=== PATIENT | male | born 1960 | race Caucasian/White ===

== ENCOUNTER 2019-10-23 06:58 | Outpatient (CLI) | payer BC, SELFPAY ==
--- NOTE | ~2019-10-23 | XR_ITS ---
EXAMINATION: XR ankle LT min 3V DATE: 10/23/2019 07:14 INDICATION: Left foot and ankle pain. TECHNIQUE: Anteroposterior, oblique, mortise, and lateral views of the left ankle were obtained. COMPARISON: 09/04/2003 FINDINGS: Alignment is normal. Old healed fractures at the lateral malleolus and lateral aspect of the talar do me with mild residual deformities. No acute fracture. Mild nonuniform joint space narrowing consisten t with secondary osteoarthritis at the tibiotalar joint. New ovoid heterotopic ossicle near the tip o f the medial malleolus likely related to prior deltoid ligament sprain. Moderate-sized plantar calcan eal spur. Soft tissues are unremarkable with no left ankle joint effusion. IMPRESSION: 1. 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 Reviewed, dictated and finalized at location A. IMPRESSION: 1. 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
== END 2019-10-23 06:59 | disposition home or self-care (01) ==
LOC: ANHIMG 07:02
PROVIDERS: PCP Family Medicine; Visit Provider Family Medicine
DX: G89.29 Other chronic pain (principal); M25.572 Pain in left ankle and joints of left foot; M19.072 Primary osteoarthritis, left ankle and foot; Z87.81 Personal history of (healed) traumatic fracture
CPT/HCPCS: 73610

== ENCOUNTER 2019-12-23 09:31 | Outpatient (CLI) | payer BC, SELFPAY ==
--- NOTE | 2019-12-23 11:00 | NEURO_ITS ---
Patient Number: [id number] Impression: # Complains of numbness of left hand. # Patient requesting only left hand to be tested. # Left Carpal Tunnel Syndrome. # Left ulnar neuropathy across the elbow. # Needle/EMG exam mildly abnormal in the muscles tested,as outlined,consistent with involvement of APB, first dorsal interosseous and APB on the left side Nerve Conduction Studies Anti Sensory Summary Table Stim Site NR Peak (ms) P-T Amp (?V) Site1 Site2 Delta-P (ms) Dist (cm) Harmeet (m/s) Left Median Anti Sensory (2-3nd Digit) Wrist 4.8 35.4 Wrist 2-3nd Digit 4.8 14.0 29 Wrist 4.3 41.7 Wrist 2-3nd Digit 4.8 14.0 29 Left Radial Anti Sensory (Base 1st Digit) Wrist 2.1 18.6 Wrist Base 1st Digit 2.1 0.0 Left Ulnar Anti Sensory (5th Digit) Wrist 3.0 21.3 Wrist 5th Digit 3.0 14.0 47 Motor Summary Table Stim Site NR Onset (ms) O-P Amp (mV) Site1 Site2 Delta-0 (ms) Dist (cm) Harmeet (m/s) Left Median Motor (Abd Poll Brev) Wrist 5.2 2.4 Elbow Wrist 6.4 32.0 50 Elbow 11.6 2.2 Left Ulnar Motor (Abd Dig Minimi) Wrist 3.4 7.6 Wrist Wrist 7.0 34.0 A Elbow 10.4 6.3 A Elbow Wrist 4.3 27.0 49 B Elbow 7.7 6.1 B. Elbow Wrist 22.0 63 F Wave Studies NR F-Lat (ms) L-R F-Lat (ms) Left Median (Mrkrs) (Abd Poll Brev) 33.63 Left Ulnar (Mrkrs) (Abd Dig Min) 33.05 EMG Side Muscle Nerve Root Ins Act Fibs Amp Dur Recrt Comment Left 1stDorInt Ulnar C8-T1 Nml Nml Nml >12ms Reduced Left Ext Indicis Radial (Post Int) C7-8 Nml Nml Nml Nml Nml Left Ext Digitorum Radial (Post Int) C7-8 Nml Nml Nml Nml Nml Left BrachioRad Radial C5-6 Nml Nml Nml Nml Nml Left PronatorTeres Median C6-7 Nml Nml Nml Nml Nml Left Abd Poll Brev Median C8-T1 Nml Nml Nml >12ms Reduced Left ABD Dig Min Ulnar C8-T1 Nml Nml Nml >12ms Reduced Left Anconeus Radial C7-8 Nml Nml Nml Nml Nml MTDD
== END 2019-12-23 09:32 | disposition home or self-care (01) ==
LOC: ANHNEURO 09:32
PROVIDERS: PCP Family Medicine; Visit Provider Family Medicine
DX: G56.02 Carpal tunnel syndrome, left upper limb (principal); G56.22 Lesion of ulnar nerve, left upper limb
CPT/HCPCS: 95886; 95909

== ENCOUNTER 2021-05-10 07:00 | Outpatient (CLI) | payer OTHER, SELFPAY ==
[2021-05-10 08:07] LABS: Anion Gap 6 mmol/L (8-16); Blood Urea Nitrogen 12 mg/dL (9-20); Calcium 8.8 mg/dL (8.4-10.2); Carbon Dioxide 29 mmol/L (22-30); Chloride 104 mmol/L (98-107); Cholesterol 249 mg/dL (0-200); Estimated Glomerular Filt Rate > 60; Glucose 122 mg/dL (65-110); HDL Direct 49 mg/dL; Potassium 4.3 mmol/L (3.4-5.0); Sodium 139 mmol/L (137-145); Triglycerides 161 mg/dL (<150)
[2021-05-10 08:19] LABS: LDL Cholesterol Direct 158 mg/dL
[2021-05-10 08:38] LABS: Prostate Specific Antigen 3.1 ng/mL (< OR = 4.0)
== END 2021-05-10 07:01 | disposition home or self-care (01) ==
LOC: ANHLAB 07:02
PROVIDERS: PCP Family Medicine; Visit Provider Nurse Practitioner Family
DX: Z12.5 Encounter for screening for malignant neoplasm of prostate (principal); Z13.1 Encounter for screening for diabetes mellitus; Z13.29 Encounter for screening for other suspected endocrine disorder; Z13.220 Encounter for screening for lipoid disorders
CPT/HCPCS: 36415; 80048; 80061; 84153; 84443

== ENCOUNTER 2023-07-04 06:34 | Outpatient (CLI) | payer MEDICARE, SELFPAY ==
--- NOTE | ~2023-07-04 | XR_ITS ---
[id number] 07/04/2023 06:51 Indication: Knee pain Procedure: 2 views left knee Comparison: No prior studies for comparison. Findings: No fracture, subluxation or dislocation. There is anatomic alignment. No joint space narrow ing. Impression: 1: No significant bone or joint abnormality. Reviewed, dictated and finalized at location B. Impression: 1: No significant bone or joint abnormality.
== END 2023-07-04 06:35 | disposition home or self-care (01) ==
LOC: ANHIMG 06:38
PROVIDERS: PCP Family Medicine; Visit Provider Nurse Practitioner Family
DX: M25.562 Pain in left knee (principal)
CPT/HCPCS: 73560

== ENCOUNTER 2023-07-31 07:00 | Outpatient (NON) | payer MEDICARE, SELFPAY | END 2023-07-31 07:01 | disposition home or self-care (01) | LOC: ANHLAB 08-01 07:17 | PROVIDERS: PCP Family Medicine; Visit Provider Internal Medicine Gastroenterology | DX: R19.5 Other fecal abnormalities (principal); D12.5 Benign neoplasm of sigmoid colon; K63.5 Polyp of colon; K62.1 Rectal polyp | CPT/HCPCS: 88305 ==

== ENCOUNTER 2023-07-31 08:03 | Day surgery (SDC) | payer MEDICARE, SELFPAY ==
[2023-05-15 11:46] VITALS: BMI 32.0
[2023-06-18 10:28] VITALS: BMI 31.1
--- NOTE | 2023-07-31 06:55 | WPDANESEPPF ---
Anes - Initial Pre Proc Eval Procedure: Operation Date: 07/31/23 11:00 Proposed Procedures p Screening Colonoscopy - Ar Gordon MD Date/Time: 07/31/23 06:55 Surgeon: Ar Gordon MD Pre Op Diagnosis: Neoplasm Screening Patient Data Age: 63 Gender: M Height: 1.8 m Weight: 101.151 kg Allergies Allergy/AdvReac Type Severity Reaction Status Date / Time No Known Allergies Allergy Unknown Verified 07/31/23 09:55 Home Medications Medication Instructions Recorded Confirmed Type aspirin 81 mg tablet,delayed 81 mg PO DAILY 10/20/19 07/31/23 History release (Adult Low Dose Aspirin) sildenafil 100 mg tablet 100 mg PO DAILY PRN sexual 10/15/20 07/31/23 Rx activity #30 tabs rosuvastatin 20 mg tablet (Crestor) 20 mg PO DAILY #90 tabs 10/17/22 07/31/23 Rx ibuprofen 600 mg tablet 600 mg PO BID PRN pain #30 tabs 06/12/23 07/31/23 Rx Patient hx anesthesia problems: none Family hx anesthesia problems: none Results Review: All pre-operative results and documents have been reviewed as part of the pre-operative evaluation. [facility] Past Medical History Medical History Abdominal bloating BMI 28.0-28.9,adult BMI 29.0-29.9,adult BMI 30.0-30.9,adult BMI 31.0-31.9,adult BMI 32.0-32.9,adult Carpal tunnel syndrome, left COVID-19 Entrapment of left ulnar nerve Hearing loss Left carpal tunnel syndrome Plantar fasciitis of left foot Plantar fasciitis, right Seasonal allergies Tobacco abuse Traumatic arthritis of left ankle Vision loss Surgical History Surgical History H/O removal of cyst Family History Family History Mother Hypertension CHF (congestive heart failure) Acute myocardial infarction Father Family history of alcoholism Family history of primary malignant neoplasm of liver Acute myocardial infarction Cancer Grandparent Family history of heart disease in male family member before age 55 Sibling Hypertension Thyroid activity decreased Other Heart disease Social History Social History (Updated 07/31/23 @ 10:30 by Dheeraj Mccoy DO) Smoking packs per day: 1 Smoking cigarettes per day: 20.0 Years smoked: 30 Smoking pack-years: 30.00 Smoking status: Former smoker Tobacco type: cigarettes Second hand tobacco smoke exposure: Yes Smoking end date: 11/10/20 Alcohol intake: current Drinks per week: 12 Alcohol use details: 3-5 beers/day Substance use: never Substance use type: does not use Lack of Transportation: No Lack of Food: Never True Current Housing: I Have Housing Concerned About Future Housing: No Difficulty Paying Gas/Electric Bills: No Difficulty Paying for Meds: No Currently Unemployed: No Education: Trade/Vocational Certificate Difficulty w/ Childcare or Family Care: No Living arrangements: with family Occupation/Education: retired Additional occupation/education comments: [employer] Gender identity (if verbalized by the patient): Male Anes - Eval Final PreProcedure Day of Procedure 07/31/23 06:55 Patient weight: obese Heart: regular rate and rhythm Lungs: clear to auscultation Airway: Mallampati scale class II Neurological: alert and oriented Last oral intake: >/= 8 hours ASA classification: III Emergent: no Anesthetic plan: proceed Anesthesia type and monitoring: general GIVS and standard monitoring Results Review: All pre-operative results and documents have been reviewed as part of the pre-operative evaluation. Informed Consent: The patient's anesthetic plan and its attendant risks and benefits were discussed with the patient/family/POA. Questions were solicited and answers provided to the satisfaction of the patient/family/POA.
[2023-07-31 10:05] VITALS: BP 150/96; PULSE 82; RESP 20; TEMP 36.9; O2SAT 99; BMI 30.5
[2023-07-31] MEDS: LACTATED RINGERS 1,000 ML 150 ML IV CONT (10:16)
--- NOTE | 2023-07-31 10:20 | PM.HPGS ---
History of Present Illness History of Present Illness Consent: Risks, benefits, and alternatives have been discussed and questions answered. Patient agrees to proceed with procedure. Chief complaint: Neoplasm Screening Narrative: Marcello Edwards is a 63 year old male Who was referred for colon cancer screening. he performed a Cologuard test which was positive. Review of Systems Review of Systems: All systems reviewed & are unremarkable except as noted in HPI and below PMFSH Past Medical History Medical History Abdominal bloating BMI 28.0-28.9,adult BMI 29.0-29.9,adult BMI 30.0-30.9,adult BMI 31.0-31.9,adult BMI 32.0-32.9,adult Carpal tunnel syndrome, left COVID-19 Entrapment of left ulnar nerve Hearing loss Left carpal tunnel syndrome Plantar fasciitis of left foot Plantar fasciitis, right Seasonal allergies Tobacco abuse Traumatic arthritis of left ankle Vision loss Surgical History Surgical History H/O removal of cyst Family History Family History Mother Hypertension CHF (congestive heart failure) Acute myocardial infarction Father Family history of alcoholism Family history of primary malignant neoplasm of liver Acute myocardial infarction Cancer Grandparent Family history of heart disease in male family member before age 55 Sibling Hypertension Thyroid activity decreased Other Heart disease Social History Social History Smoking packs per day: 1 Smoking cigarettes per day: 20.0 Years smoked: 30 Smoking pack-years: 30.00 Smoking status: Former smoker Tobacco type: cigarettes Second hand tobacco smoke exposure: Yes Smoking end date: 11/10/20 Alcohol intake: current Drinks per week: 12 Substance use: never Substance use type: does not use Lack of Transportation: No Lack of Food: Never True Current Housing: I Have Housing Concerned About Future Housing: No Difficulty Paying Gas/Electric Bills: No Difficulty Paying for Meds: No Currently Unemployed: No Education: Trade/Vocational Certificate Difficulty w/ Childcare or Family Care: No Living arrangements: with family 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 Gender identity (if verbalized by the patient): Male Meds Home Medications and Allergies Home Medications Medication Instructions Recorded Confirmed Type aspirin 81 mg tablet,delayed 81 mg PO DAILY 10/20/19 07/31/23 History release (Adult Low Dose Aspirin) sildenafil 100 mg tablet 100 mg PO DAILY PRN sexual 10/15/20 07/31/23 Rx activity #30 tabs rosuvastatin 20 mg tablet (Crestor) 20 mg PO DAILY #90 tabs 10/17/22 07/31/23 Rx ibuprofen 600 mg tablet 600 mg PO BID PRN pain #30 tabs 06/12/23 07/31/23 Rx Allergies Allergy/AdvReac Type Severity Reaction Status Date / Time No Known Allergies Allergy Unknown Verified 07/31/23 09:55 Vital Signs Vital Signs - 24 hr 07/31/23 10:05 Temperature 36.9 C Pulse Rate 82 Respiratory Rate 20 Blood Pressure 150/96 H Pulse Oximetry 99 Oxygen Delivery Room Air Exam Resp: Auscultation: clear to auscultation bilaterally Cardio: Rate: regular rate Rhythm: regular rhythm GI: GI Palp: Yes Soft to palpation and No Tenderness to palpation present (GI) Assessment and Plan Assessment and plan (1) Positive colorectal cancer screening using Cologuard test: Code(s): R19.5 - Other fecal abnormalities Status: Acute Assessment and Plan: Colonoscopy with possible biopsy or polypectomy or cautery or injection of substances.
[2023-07-31 10:57] VITALS: BP 99/69; PULSE 74; RESP 16; O2SAT 96
[2023-07-31 11:07] VITALS: BP 111/76; PULSE 80; RESP 16; O2SAT 100
--- NOTE | 2023-07-31 11:07 | WPDANESPN ---
Anes - Prog Note Post-Op Date/Time: 07/31/23 11:07 Cardiovascular status: normal Respiratory status: normal Airway patency: baseline Mental status: baseline Post-Op hydration status: normal Vital Signs: Last Vital Signs Temp 36.9 C 07/31/23 10:05 Pulse 74 07/31/23 10:57 Resp 16 07/31/23 10:57 BP 99/69 L 07/31/23 10:57 Pulse Ox 96 07/31/23 10:57 O2 Del Method Room Air 07/31/23 10:57 Pain Score (VAS): 0 I/O: Intake & Output 07/30/23 07/31/23 07/31/23 23:59 07:59 15:59 Intake Total 400 Balance 400 Post-procedural complaints: none Patient Feedback: Patient satisfied with anesthetic care. Other Findings: Patient vital signs back to baseline. Patient denies nausea and vomiting. Patient's pain under control. Patient OK for discharge.
[2023-07-31 11:17] VITALS: BP 127/90; PULSE 68; RESP 20; O2SAT 100
== END 2023-07-31 11:30 | disposition home or self-care (01) ==
PROVIDERS: PCP Family Medicine; Visit Provider Internal Medicine Gastroenterology
PROC: 0DJD8ZZ Inspection of Lower Intestinal Tract, Via Natural or Artificial Opening Endoscopic (ICD-10-PCS; CPT 45378; principal; 2023-07-31 11:00)
DX: R19.5 Other fecal abnormalities (principal); D12.8 Benign neoplasm of rectum; D12.5 Benign neoplasm of sigmoid colon
CPT/HCPCS: 45385

== ENCOUNTER 2025-03-01 20:09 | Emergency (ER) | payer MEDICARE, SELFPAY ==
--- OUTSIDE RECORDS SUMMARY | 2025-03-01 20:11 | XMS_ITS | Clinical Summary ---
Author Organization [facility] Address [address] [place] [address] Care Team Providers Care Fixed Wing Aircraft Crew Chief Name Role Phone Anthony Monroe MD Primary Care Provider [phone] Source Comments [facility],non-owned Affiliates and Associated Physician Practices is amultiple site organization consisting of ambulatory clinics and hospital sitesin [place], [place], [place] and [place]. This disclosure is being madepursuant to the Care Everywhere program and may not contain all information available regarding this patient. Last updated 17.[facility] Records Management Social History Tobacco Use Types Packs/Day Years Used Date Smoking Tobacco: Never Assessed Sex and Gender Information Value Date Recorded Sex Assigned at Not on file Legal Sex Male 11:32 AM CDT Gender Identity Not on file Sexual Orientation Not on file Plan of Treatment Health Maintenance Due Date Last Done Comments COLOGUARD (AGES 45-75) - COL ON CA SCREENING 1958 COLON MONITORING 1958 COLONOSCOPY - COLON CA SCREENING 1958 CT COLONOGRAPHY - COLON CA SCREENING 1958 Colorectal Cancer Screening 1958 FIT - COLON CA SCREENING 1958 FLEX SIG - COLON CA SCREENING 1958 LIPID TESTING 1958 HEPATITIS C SCREENING 05/19/1976 DTAP/TDAP/TD VACCINES (1 - Tdap) 1977 PNEUMOCOCCAL VACCINE 50+ (1 of 1 - PCV) 2008 ZOSTER VACCINE (1 of 2) 2008 DEPRESSION SCREENING 03/12/2024 MEDICARE AWV CALENDAR YEAR 2024 COVID-19 VACCINE (1 - 2024-2 6 season) 2024 INFLUENZA VACCINE (#1) 2024 Respiratory Syncytial Virus (RSV) Vaccine Pt: or over 60 yrs (1 - 1-dose 75+ series) 2033 HEPATITIS B VACCINE Aged Out No longe r eligible based on patient's age to complete this topic HIB VACCINE Aged Out No longer eligi ble based on patient's age to complete this topic HPV VACCINE Aged Out No longer eligi ble based on patient's age to complete this topic MENINGOCOCCAL (Group B) VACC INE SHARED DECISION-MAKING Aged Out No longer eligibl e based on patient's age to complete this topic MENINGOCOCCAL GROUPS A/C/Y/W VACCINE Aged Out No longer eligible b ased on patient's age to complete this topic Insurance [facility] UHC MANAGED MEDICARE ADV * Guarantor: MARCELLO EDWARDS Account Type Relation to Patient Date of Phone Billing Address Personal/Family [address] [place] [address] SELF PAY NO INSURANCE Member Subscriber Plan / Payer (Ef fective for All Dates) Name:Marcello Edwards Member ID:Not on file Relation to Subscriber:Not on file Name:MARCELLO EDWARDS Subscriber ID:Not on file (Home) Address: [address] [place] [id number] Payer ID:Not on file Group ID:Not on file Type:Self Pay Address: [facility] MANAGED MEDICARE ADV * Guarantor: MARCELLO EDWARDS Account Type Relation to Patient Date of Phone Billing Address Personal/Family [address] [place] [address] SELF PAY NO INSURANCE Member Subscriber Plan / Payer (Ef fective for All Dates) Name:Jerry Marcello Member ID:Not on file Relation to Subscriber:Not on file Name:MARCELLO EDWARDS Subscriber ID:Not on file (Home) Address: [address] [place] [id number] Payer ID:Not on file Group ID:Not on file Type:Self Pay Address: [facility] MANAGED MEDICARE ADV [id number] * Guarantor: MARCELLO EDWARDS Account Type Relation to Patient Date of Phone Billing Address Personal/Family [address] [place], [place] [id number] SELF PAY NO INSURANCE Member Subscriber Plan / Payer (Ef fective for All Dates) Name:Marcello Edwards Member ID:Not on file Relation to Subscriber:Not on file Name:MARCELLO EDWARDS Subscriber ID:Not on file (Home) Address: [address] [place] [address] Payer ID:Not on file Group ID:Not on file Type:Self Pay Address: [facility] MANAGED MEDICARE ADV Member Subscriber Plan / Payer (Ef fective 2024-Present) Name:Marcello Edwards Relation to Subscriber:Self Name:Marcello Edwards Payer ID:[id number] (NAIC) Type:Medicare-Managed Care Address: [place] [phone] Care Teams Fixed Wing Aircraft Crew Chief Relationship Specialty Start Date End Date Anthony Monroe MD [address] [place] [address] PCP - General 12/07/21
--- OUTSIDE RECORDS SUMMARY | 2025-03-01 20:11 | XMS_ITS | Encounter Summary ---
Author Organization [facility] Address [address] [facility] [place] [address] Care Team Providers Care Barrel Drum Cutter Name Role Phone Anthony Monroe MD Primary Care Provider [phone] Encounter Details Date Type Department Care Team (Late st Contact Info) Description 01/01/2024 Lab Requisition [facility] - DermPath Lab [address], [facility] [place] [id number] Lauren Valdes MD [address] [facility] [address] [place] [address] Social History Tobacco Use Types Packs/Day Years Used Date Smoking Tobacco: Never Assessed Sex and Gender Information Value Date Recorded Sex Assigned at Not on file Legal Sex Male 11:32 AM CDT Gender Identity Not on file Sexual Orientation Not on file documented as of this encounter Plan of Treatment Not on file documented as of this encounter Procedures Procedure Name Priority Date/Time Associated Diagnosis Comments DERMATOPATHOLOGY Routine 01/01/2024 10:4 0 AM CDT documented in this encounter Results * DERMATOPATHOLOGY (01/01/2024 10:40 AM CDT) Case Report Dermatopathology Report Case: [id number] Authorizing Provider: Lauren Valdes MD Collected: 01/01/2024 10:40 AM Ordering Location: [facility] - Received: 01/01/2024 04:28 PM DermPath Lab Pathologist: Nikki Duran MD Specimen: Skin, left nasal bridge 4:04 PM CDT DERMATOPATHOLOGY LABORATORY Final Diagnosis Specimen A. SKIN, left nasal bridge: BASAL CELL CARCINOMA, NODULAR TYPE (C44.311) 4:04 PM CDT DERMATOPATHOLOGY LABORATORY at 1604 CDT Clinical History R/o BCC 4:04 PM CDT DERMATOPATHOLOGY LABORATORY Gross Description Specimen A: Received is one formalin filled container labeled with the patient's name and designated left nasal bridge. The specimen consists of a shave biopsy measuring 4x3x1 mm. Jar 0. 4:04 PM T DERMATOPATHOLOGY LABORATORY Microscopic Description Specimen A. SKIN, left nasal bridge: Within the dermis there are aggregates of basaloid cells with a high nuclear to cytoplasmic ratio and peripheral palisading. 4:04 PM CDT DERMATOPATHOLOGY LABORATORY Disclaimer An external and internal positive and negative controls are appropriate for the histochemical, immunohistochemical and immunofluorescence stain(s) in this case (if any), except where stated explicitly. The performance characteristics of the stain(s) cited in this report were developed and its performance characteristic determined by the Dermatopathology Laboratory at [facility], directed by Dr. Shad Arrington. These tests need not be, and therefore are not, approved by the [place] Food and Drug Administration. The tests are used for clinical purposes. Billing Codes Specimen Charges Stain Charges 68252 1 4:04 PM CDT DERMATOPATHOLOGY LABORATORY Embedded Images 4:04 PM CDT DERMATOPATHOLOGY LABORATORY Pathology/Cytolo gy TISSUE SPECIMEN FROM SKIN / Unknown 01/01/2024 10:40 AM CDT 01/01/2024 4:28 PM CDT Lauren Valdes MD LAB - PATHOLOGY/CYTOLOGY OR DERABLES Final Result DERMATOPATHOLOGY LABORATORY [facility] - Department of Dermatology [address] [place] [address], [facility] [phone] documented in this encounter Visit Diagnoses Not on filedocumented in this encounter Care Teams Barrel Drum Cutter Relationship Specialty Start Date End Date Anthony Monroe MD [address] [place] [address] PCP - General 12/07/21 documented as of this encounter
--- OUTSIDE RECORDS SUMMARY | 2025-03-01 20:11 | XMS_ITS | Encounter Summary ---
Author Organization [facility] Address [address] [facility] [place] [address] Care Team Providers Care Casing Tester Name Role Phone Anthony Monroe MD Primary Care Provider [phone] Encounter Details Date Type Department Care Team (Late st Contact Info) Description 10/18/2022 Lab Requisition [facility] - DermPath Lab [address] [facility] [place] [phone] Pamela Fontaine MD [address] [facility] [address] [place] [address] Social History Tobacco Use Types Packs/Day Years [...] Priority Date/Time Associated Diagnosis Comments DERMATOPATHOLOGY Routine 10/18/2022 10:2 5 AM CDT documented in this encounter Results * DERMATOPATHOLOGY (10/18/2022 10:25 AM CDT) Case Report Dermatopathology Report Case: [id number] Authorizing Provider: Pamela Fontaine MD Collected: 10/18/2022 10:25 AM Ordering Location: [facility] DermPath Lab Received: 10/19/2022 07:10 AM Pathologist: Nikki Duran MD Specimen: Skin, upper back 1:02 PM CDT DERMATOPATHOLOGY LABORATORY Final Diagnosis Specimen A. SKIN, upper back: COMPOUND MELANOCYTIC NEVUS (D22.5) 3 1:02 PM CDT DERMATOPATHOLOGY LABORATORY at 1302 CDT Clinical History R/O: MELANOMA, NEVUS: PINK BROWN PAPULE 1:02 PM CDT DERMATOPATHOLOGY LABORATORY Gross Description Specimen A: Received is one formalin filled container labeled with the patient's name and designated upper back. The specimen consists of a shave biopsy measuring 10x8x2 mm. Jar 0. 3 1:02 PM CDT DERMATOPATHOLOGY LABORATORY Microscopic Description Specimen A. SKIN, upper back: There are nests of melanocytes at the dermal-epidermal junction and within the dermis. 3 1:02 PM CDT DERMATOPATHOLOGY LABORATORY Disclaimer An external and internal positive and negative controls are appropriate for the histochemical, immunohistochemical and immunofluorescence stain(s) in this case (if any), except where stated explicitly. The performance characteristics of the stain(s) cited in this report were developed and its performance characteristic determined by the Dermatopathology Laboratory at [facility], directed by Dr. Shad Arrington. These tests need not be, and therefore are not, approved by the [place] Food and Drug Administration. The tests are used for clinical purposes. Billing Codes Specimen Charges Stain Charges 07680 1 3 1:02 PM CDT DERMATOPATHOLOGY LABORATORY Embedded Images 3 1:02 PM CDT DERMATOPATHOLOGY LABORATORY Pathology/Cytolo gy TISSUE SPECIMEN FROM SKIN / Unknown 10/18/2022 10:25 AM CDT 10/19/2022 7:10 AM CDT us Pamela Fontaine MD LAB - PATHOLOGY/CYTOLOGY ORD ERABLES Final Result DERMATOPATHOLOGY LABORATORY [facility] - Department of Dermatology [address] [phone] documented in this encounter Visit Diagnoses Not on filedocumented in this encounter Care Teams Casing Tester Relationship Specialty Start Date End Date Anthony Monroe [place] [address] PCP - General 12/07/21 documented as of this encounter
[2025-03-01 20:44] VITALS: BP 166/92; PULSE 98; RESP 18; TEMP 37.1; O2SAT 96
[2025-03-01 22:30] VITALS: BP 154/94; PULSE 91; RESP 17; TEMP 37.2; O2SAT 97
--- NOTE | 2025-03-01 22:34 | ED.EPISTAXIS ---
HPI - Epistaxis General Chief complaint: Epistaxis Stated complaint: nose wont stop bleeding Time Seen by Provider: 03/01/25 22:23 Source: patient Mode of arrival: ambulatory Limitations: no limitations History of Present Illness HPI Narrative: This is a 64 year old male that presents to the ER for nosebleed. He has had a cold. Sneezed tonight and his nose started bleeding. Has mostly stopped at this point. Related Data Home Medications ?Medication ?Instructions ?Recorded ?Confirmed ?Last Taken ?Type aspirin 81 mg tablet,delayed 81 mg PO DAILY 10/20/19 12/03/23 07/28/23 History release (Adult Low Dose Aspirin) Allergies Allergy/AdvReac Type Severity Reaction Status Date / Time No Known Allergies Allergy Unknown Verified 03/01/25 22:33 Review of Systems Review of Systems: All systems reviewed & are unremarkable except as noted in HPI and below PMFSH Past Medical History Medical History (Updated 03/01/25 @ 23:34 by Chloe Barbosa PA-C) Encounter for Prevnar pneumococcal vaccination Skin irritation Abdominal bloating COVID-19 Entrapment of left ulnar nerve Left carpal tunnel syndrome Tobacco abuse Seasonal allergies Plantar fasciitis of left foot Traumatic arthritis of left ankle Hearing loss Vision loss Carpal tunnel syndrome, left Plantar fasciitis, right Surgical History Surgical History H/O removal of cyst Family History Family History Mother Hypertension CHF (congestive heart failure) Acute myocardial infarction Father Family history of alcoholism Family history of primary malignant neoplasm of liver Acute myocardial infarction Cancer Grandparent Family history of heart disease in male family member before age 55 Sibling Hypertension Thyroid activity decreased Other Heart disease Social History Social History Smoking packs per day: 1 Smoking cigarettes per day: 20.0 Years smoked: 30 Smoking pack-years: 30.00 Smoking status: Former smoker Tobacco type: cigarettes Second hand tobacco smoke exposure: Yes Smoking end date: 11/10/20 Alcohol intake: current Drinks per week: 12 Alcohol use details: 3-5 beers/day Substance use: never Substance use type: does not use Lack of Transportation: No Lack of Food: Never True Current Housing: I Have Housing Concerned About Future Housing: No Difficulty Paying Gas/Electric Bills: No Difficulty Paying for Meds: No Currently Unemployed: No Education: Trade/Vocational Certificate Difficulty w/ Childcare or Family Care: No Living arrangements: with family Occupation/Education: retired 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 HEAD: Normocephalic, atraumatic. EYES: EOMI. ENT: Dried blood in the right nare. Mucous membranes moist. Oropharynx without tonsillar hypertrophy exudate or other lesions. EXTREMITIES: Normal range of motion. No edema. SKIN: Warm, dry, no rash. NEURO: No focal deficits. Alert and oriented x3. PSYCH: Normal mood and affect Course Vital Signs Vital signs: Vital Signs Temperature 98.7 F 03/01/25 20:44 Pulse Rate 98 03/01/25 20:44 Respiratory Rate 18 03/01/25 20:44 Blood Pressure 166/92 H 03/01/25 20:44 Pulse Oximetry 96 03/01/25 20:44 Oxygen Delivery Room Air 03/01/25 20:44 Temperature 99.0 F 03/01/25 22:30 Pulse Rate 91 03/01/25 22:30 Respiratory Rate 17 03/01/25 22:30 Blood Pressure 154/94 H 03/01/25 22:30 Pulse Oximetry 97 03/01/25 22:30 Oxygen Delivery Room Air 03/01/25 20:44 Procedures Epistaxis Control right: Epistaxis Control Date: 03/01/25 Nose Prepped With: oxymetazoline Direct Inspection: yes and anterior source identified Cautery Used: none Patient Tolerated Procedure: well and no complications Epistaxis Control Narrative: bleeding controlled with Afrin on cotton ball MDM MDM Narrative Medical decision making narrative: Patient presents to the ER for nose bleed. This is largely controlled by the time of my evaluation. I did apply some Afrin to the area with continued epistaxis control. Offered rhino rocket, patient has declined at this time. Instructed on further care, given warnings to return Differential Diagnosis Differential Diagnosis: Anterior epistaxis, posterior epistaxis. Critical Care Time Critical Care Time Critical Care Time: No Discharge Plan Discharge Clinical Impression: Epistaxis Patient Disposition: Home Condition: Stable Instructions: Nosebleed (ED) Additional Instructions: Return to the emergency department if you experience fever, nosebleed you are unable to control, or any other symptoms that are concerning to you Keep the nasal passages moist with nasal saline and/or vaseline. Avoid picking the nose, blowing the nose Follow up with ENT Patient Language: Anguillan Prescriptions: No Action aspirin [Adult Low Dose Aspirin] 81 mg tablet,delayed release (DR/EC) 81 mg PO DAILY rosuvastatin 20 mg tablet 20 mg PO DAILY Qty: 90 3RF Follow-up/Referrals: Clark Baker MD [Physician, Ear, Nose, Throat] Anthony Monroe MD [Primary Care Provider, Family Practice]
--- OUTSIDE RECORDS SUMMARY | 2025-03-01 22:51 | XMS_ITS | Encounter Summary ---
Author Organization [facility] Address [address] [place] [address] Care Team Providers Care Gluten Settling Tender Name Role Phone Anthony Monroe MD Primary Care Provider [phone] Encounter Details Date Type Department Care Team (Late st Contact Info) Description 01/01/2024 Lab Requisition [facility] Physician [facility] - DermPath Lab [address] [facility] [facility] [place] [id number] Lauren Valdes MD [address] [facility] [address] [place] [address] Social History Tobacco Use Types Packs/Day Years [...] AM CDT) Case Report Dermatopathology Report Case: [id number] Authorizing Provider: Lauren Valdes MD Collected: 01/01/2024 10:40 AM Ordering Location: [facility] Physician [facility] - Received: 01/01/2024 04:28 PM DermPath [...] characteristic determined by the Dermatopathology Laboratory at [facility], directed by Dr. Shad Arrington. These tests need not be, and therefore are not, approved by the [place] Food and Drug Administration. The tests are used for clinical purposes. Billing Codes Specimen Charges Stain Charges 18692 1 4:04 PM CDT DERMATOPATHOLOGY LABORATORY Embedded Images 4:04 PM CDT DERMATOPATHOLOGY LABORATORY Pathology/Cytolo gy TISSUE SPECIMEN FROM SKIN / Unknown 01/01/2024 10:40 AM CDT 01/01/2024 4:28 PM CDT Lauren Valdes MD LAB - PATHOLOGY/CYTOLOGY OR DERABLES Final Result DERMATOPATHOLOGY LABORATORY [facility] - Department of Dermatology [address] [place] [address], [facility] [phone] documented in this encounter Visit Diagnoses Not on filedocumented in this encounter Care Teams Gluten Settling Tender Relationship Specialty Start Date End Date Anthony Monroe MD [address] [place] [address] PCP - General 12/07/21 documented as of this encounter
--- OUTSIDE RECORDS SUMMARY | 2025-03-01 22:51 | XMS_ITS | Clinical Summary ---
Author Organization [facility] Address [address] [place] [address] Care Team Providers Care Manager Mutual [employer] Name Role Phone Anthony Monroe MD Primary Care Provider [phone] Source Comments [facility],non-owned Affiliates and Associated Physician Practices is amultiple site organization consisting of ambulatory clinics and hospital sitesin [place], [place], [place] and [place]. This disclosure is being madepursuant to the Care Everywhere program and may not contain all information available regarding this patient. Last updated 17.[facility] [employer] Social History Tobacco Use Types Packs/Day Years [...] patient's age to complete this topic Insurance [facility] U[employer] MANAGED MEDICARE ADV * Guarantor: MARCELLO EDWARDS Account Type Relation to Patient Date of Phone Billing Address Personal/Family [address] [place] [address] SELF PAY NO INSURANCE Member Subscriber Plan / Payer (Ef fective for All Dates) Name:Marcello Edwards Member ID:Not on file Relation to Subscriber:Not on file Name:MARCELLO EDWARDS Subscriber ID:Not on file (Home) Address: [address] [place] [id number] Payer ID:Not on file Group ID:Not on file Type:Self Pay Address: [facility] MANAGED MEDICARE ADV * Guarantor: MARCELLO EDWARDS Account Type Relation to Patient Date of Phone Billing Address Personal/Family [address] [place] [address] SELF PAY NO INSURANCE Member Subscriber Plan / Payer (Ef fective for All Dates) Name:Jerry Marcello Member ID:Not on file Relation to Subscriber:Not on file Name:MARCELLO EDWARDS Subscriber ID:Not on file (Home) Address: [address] [place] [id number] Payer ID:Not on file Group ID:Not on file Type:Self Pay Address: [facility] MANAGED MEDICARE ADV [id number] * Guarantor: MARCELLO EDWARDS Account Type Relation to Patient Date of Phone Billing Address Personal/Family [address] [place], [place] [id number] SELF PAY NO INSURANCE Member Subscriber Plan / Payer (Ef fective for All Dates) Name:Marcello Edwards Member ID:Not on file Relation to Subscriber:Not on file Name:MARCELLO EDWARDS Subscriber ID:Not on file (Home) Address: [address] [place] [address] Payer ID:Not on file Group ID:Not on file Type:Self Pay Address: [facility] MANAGED MEDICARE ADV Member Subscriber Plan / Payer (Ef fective 2024-Present) Name:Marcello Edwards Relation to Subscriber:Self Name:Marcello Edwards Payer ID:[id number] (NAIC) Type:Medicare-Managed Care Address: [place] [phone] Care Teams Manager Mutual Fund Relationship Specialty Start Date End Date Anthony Monroe MD [address] [place] [address] PCP - General 12/07/21
== END 2025-03-01 23:42 | disposition home or self-care (01) ==
PROVIDERS: Emergency Provider Physician Assistant; PCP Family Medicine
DX: R04.0 Epistaxis (principal); Z87.891 Personal history of nicotine dependence
CPT/HCPCS: 99282; A9270